=== PATIENT | male | born 1960 | race Caucasian/White ===

== ENCOUNTER 2019-05-18 06:53 | Day surgery (SDC) | payer OTHER ==
[~2019-05-18] VITALS: Ht 182.9 cm; Wt 111.1 kg
[~2019-05-18 06:53] MED LIST: CALC600T60 PO; FLOM0.4C39 PO; GNP1000T11 PO; HYDR-3716 PO; LISI40TA PO; MAGN400T3 PO; METF500T13 PO; MULTCAP PO; NS 1,000 ML IV ONE; OMEP20CA4 PO; PROP60TA18 PO; QC F0.52 PO; REFR0.5D8 OU; SILD100T PO; SIMV40TA2 PO
[2019-05-18] MEDS ORDERED: LIDOCAINE 2% INJ 100 MG/5 ML SDV (FOR ANES.) As Ordered ONE (07:14)
[2019-05-18] MEDS ORDERED: PROPOFOL 200 MG/20 ML VIAL As Ordered ONE ×2 (07:14→08:35)
[2019-05-18] MEDS ORDERED: fentaNYL 100 MCG/2 ML INJECTION (J3010) As Ordered ONE (08:05)
--- NOTE | 2019-05-18 08:22 | ROOR ---
Patient Name: James Tran Procedure Date: 05/18/2019 8:02 AM Date of : 1960 Age: 58 Room: [facility] Gender: Male Note Status: Finalized Procedure: Upper Endoscopy + Biopsies Indications: Heartburn, Nausea Providers: Sylvester De Diso MD Referring MD: [facility] Kevin TRAVIS [facility] [address], Admin. Requesting Provider: Medicines: Monitored Anesthesia Care Complications: No immediate complications. Procedure: Pre-Anesthesia Assessment: - The heart rate, respiratory rate, oxygen saturations, blood pressure, adequacy of pulmonary ventilation, and response to care were monitored throughout the procedure. The Endoscope was introduced through the mouth, and advanced to the second part of duodenum. The upper GI endoscopy was accomplished without difficulty. The patient tolerated the procedure well. Findings: The Z-line was irregular and was found 40 cm from the incisors. Multiple biopsies were obtained with cold forceps for evaluation to rule out Helms's Esophagus randomly at the gastroesophageal junction. A small hiatal hernia was present. Localized mild inflammation characterized by congestion (edema) and erythema was found in the prepyloric region of the stomach. Biopsies were taken with a cold forceps for Helicobacter pylori testing. The exam of the duodenum was otherwise normal. Impression: - Z-line irregular, 40 cm from the incisors. - Small hiatal hernia. - Mucosal changes suspicious for gastritis. Biopsied. - Multiple biopsies were obtained at the gastroesophageal junction. - The examination was otherwise normal. Recommendation: - Patient has a contact number available for emergencies. The signs and symptoms of potential delayed complications were discussed with the patient. Return to normal activities tomorrow. Written discharge instructions were provided to the patient. - High fiber diet. - Discharge patient to home. - Follow an antireflux regimen. - Continue present medications. - Await pathology results. - Telephone GI clinic for pathology results in 1 week. - Return to referring physician. - The findings and recommendations were discussed with the patient's family. Sylvester De Dios MD Sylvester De Dios MD 05/18/2019 8:22:11 AM Electronically signed by Sylvester De Dios MD Number of Addenda: 0 Note Initiated On: 05/18/2019 8:02 AM Estimated Blood Loss: Estimated blood loss: none.
--- NOTE | 2019-05-18 08:48 | ROOR ---
Patient Name: James Tran Procedure Date: 05/18/2019 8:02 AM Date of : 1960 Age: 58 Room: [facility] Gender: Male Note Status: Finalized Procedure: Total Colonoscopy to Cecum + Cold Snare Polypectomy + Hemoclips Indications: Screening for colorectal malignant neoplasm Providers: Sylvester De Dios MD Referring MD: [facility], Admin. Requesting Provider: Medicines: Monitored Anesthesia Care Complications: No immediate complications. Procedure: Pre-Anesthesia Assessment: - The heart rate, respiratory rate, oxygen saturations, blood pressure, adequacy of pulmonary ventilation, and response to care were monitored throughout the procedure. The Colonoscope was introduced through the anus and advanced to the cecum, identified by appendiceal orifice and ileocecal valve. The colonoscopy was performed without difficulty. The patient tolerated the procedure well. The quality of the bowel preparation was excellent. Findings: The perianal and digital rectal examinations were normal. Non-bleeding internal hemorrhoids were found during retroflexion. The hemorrhoids were small and Grade I (internal hemorrhoids that do not prolapse). Scattered small-mouthed diverticula were found in the recto-sigmoid colon, sigmoid colon and descending colon. A medium polyp was found in the mid ascending colon. The polyp was sessile. The polyp was removed with a cold snare. Resection and retrieval were complete. To prevent bleeding after the polypectomy, three hemostatic clips were successfully placed (MR conditional). There was no bleeding at the end of the procedure. The exam was otherwise without abnormality on direct and retroflexion views. Impression: - Non-bleeding internal hemorrhoids. - Diverticulosis in the recto-sigmoid colon, in the sigmoid colon and in the descending colon. - One medium polyp in the mid ascending colon, removed with a cold snare. Resected and retrieved. Clips (MR conditional) were placed. - The examination was otherwise normal on direct and retroflexion views. - The exam was otherwise normal to the cecum. Recommendation: - Patient has a contact number available for emergencies. The signs and symptoms of potential delayed complications were discussed with the patient. Return to normal activities tomorrow. Written discharge instructions were provided to the patient. - High fiber diet. - Discharge patient to home. - Continue present medications. - Await pathology results. - Telephone GI clinic for pathology results in 1 week. - Repeat colonoscopy for surveillance based on pathology results. - Return to referring physician. - The findings and recommendations were discussed with the patient's family. Sylvester De Dios MD Sylvester De Dios MD 05/18/2019 8:48:27 AM Electronically signed by Sylvester De Dios MD Number of Addenda: 0 Note Initiated On: 05/18/2019 8:02 AM Estimated Blood Loss: Estimated blood loss: none.
[2019-05-18 09:00] VITALS: BP 138/86
== END 2019-05-18 09:21 | disposition home or self-care (01) ==
LOC: M OPP 06:53
PROVIDERS: ATTEND Internal Medicine Gastroenterology
DX: Z12.11 Encounter for screening for malignant neoplasm of colon (principal); K64.0 First degree hemorrhoids; D12.2 Benign neoplasm of ascending colon; K57.30 Diverticulosis of large intestine without perforation or abscess without bleeding; K22.8 Other specified diseases of esophagus; K44.9 Diaphragmatic hernia without obstruction or gangrene; K31.89 Other diseases of stomach and duodenum; R12 Heartburn; R11.0 Nausea; E11.9 Type 2 diabetes mellitus without complications; Z79.899 Other long term (current) drug therapy; Z79.891 Long term (current) use of opiate analgesic; Z87.891 Personal history of nicotine dependence
CPT/HCPCS: 43239; 45385; 88305; J3010

== ENCOUNTER → 2021-11-22 | Outpatient (CLI) | payer OTHER ==
[~2021-11-22] MED LIST changes: -LISI40TA PO; +LISI40TA4 PO; -MAGN400T3 PO; +MAGN400T33 PO; -NS 1,000 ML IV ONE; +OMEP1CAP73 PO; -OMEP20CA4 PO; -SIMV40TA2 PO; +SIMV40TA20 PO
== END ==
LOC: M PLAIMG 14:42
PROVIDERS: ATTEND Family Medicine
DX: M54.59 Other low back pain (principal)

== ENCOUNTER → 2022-08-27 | Outpatient (CLI) | payer OTHER ==
[~2022-08-27] MED LIST changes: +GASTROGRAFIN SOLUTION 30ML As Ordered ONE; +ISOVUE-370 76% 100ML VIAL As Ordered ONE
== END ==
LOC: M RAD 12:43
PROVIDERS: ATTEND Nurse Practitioner Family
DX: K76.0 Fatty (change of) liver, not elsewhere classified (principal); K57.30 Diverticulosis of large intestine without perforation or abscess without bleeding; R10.9 Unspecified abdominal pain
CPT/HCPCS: 74178; Q9963; Q9967

== ENCOUNTER 2022-12-06 13:04 | Emergency (ER) | payer OTHER ==
[~2022-12-06] VITALS: Ht 182.9 cm; Wt 111.1 kg
[~2022-12-06 13:04] MED LIST changes: +ATEN50TA2 PO; +CYMB1CAP5 PO; +FINA5TAB2 PO; -GASTROGRAFIN SOLUTION 30ML As Ordered ONE; -ISOVUE-370 76% 100ML VIAL As Ordered ONE; +METH-1164 PO; +NESI25TA PO; +ROSU40TA4 PO; +SUMA50TA2 PO
[2022-12-06] MEDS ORDERED: KETOROLAC 30 MG/ML 1ML VIAL IV ONE (16:30)
[2022-12-06] MEDS ORDERED: methocarbamoL 500 MG TAB PO ONE (16:30)
[2022-12-06 16:35] LABS: GC DNA AMPLIFICATION NEGATIVE (NEGATIVE)
[2022-12-06 17:14] LABS: BASO # 0.1 10^3/uL (0.0-0.2); BASO % 0.8 % (0.0-1.0); EOS # 0.1 10^3/uL (0.0-0.5); EOS % 1.6 % (0.0-3.0); HEMATOCRIT 44.9 % (42.0-52.0); HEMOGLOBIN 15.4 g/dl (13.5-17.5); LYMPH # 2.3 10^3/uL (1.5-5.0); LYMPH % 28.9 % (24.0-44.0); MEAN CORPUSCULAR HEMOGLOBIN 29.6 pg (27.0-33.0); MEAN CORPUSCULAR HGB CONC 34.3 g/dl (32.0-36.5); MEAN CORPUSCULAR VOLUME 86.3 fl (80.0-96.0); MONO # 0.7 10^3/uL (0.0-0.8); MONO % 8.3 % (2.0-8.0); NEUTROPHILS # 4.8 10^3/uL (1.5-8.5); PLATELET COUNT, AUTOMATED 282 10^3/uL (150-450)
[2022-12-06 17:31] LABS: BLOOD UREA NITROGEN 11 MG/DL (9-23); CALCIUM LEVEL 9.1 MG/DL (8.3-10.6); CARBON DIOXIDE LEVEL 31 MMOL/L (20-31); CHLORIDE LEVEL 103 MMOL/L (98-107); CREATININE FOR GFR 0.78 MG/DL (0.70-1.30); GLOMERULAR FILTRATION RATE > 60.0 (>49); GLUCOSE, FASTING 119 MG/DL (74-106); POTASSIUM SERUM 4.1 MMOL/L (3.5-5.1); SODIUM LEVEL 141 MMOL/L (136-145)
[2022-12-06] MEDS ORDERED: METH-1165 PO (21:10)
[2022-12-06] MEDS ORDERED: PRED20TA PO (21:10)
[2022-12-06 21:17] VITALS: BP 140/77
== END 2022-12-06 21:17 | disposition left against medical advice (07) ==
LOC: M ED 14:40
DX: M51.36 Other intervertebral disc degeneration, lumbar region (principal); I10 Essential (primary) hypertension; G47.30 Sleep apnea, unspecified; R51.9 Headache, unspecified; N40.0 Benign prostatic hyperplasia without lower urinary tract symptoms; Z79.899 Other long term (current) drug therapy
CPT/HCPCS: 72148; 76870; 80048; 81001; 85025; 87086; 87661; 87810; 87850; 93976; 96374; 99284; J1885

== ENCOUNTER 2022-12-19 11:27 | Day surgery (SDC) | payer OTHER ==
[~2022-12-19] VITALS: Ht 182.9 cm; Wt 108.5 kg
[~2022-12-19 11:27] MED LIST changes: +METH-1165 PO; +NS 1,000 ML IV ONE; +PRED20TA PO
[2022-12-19] MEDS ORDERED: ETOMIDATE INJ 20MG/10ML VIAL As Ordered ONE (12:14)
[2022-12-19] MEDS ORDERED: fentaNYL 100 MCG/2 ML INJECTION As Ordered ONE (13:05)
[2022-12-19 14:14] VITALS: BP 169/96
== END 2022-12-19 14:17 | disposition home or self-care (01) ==
LOC: M OPP 11:27
PROVIDERS: ATTEND Surgery
DX: K63.5 Polyp of colon (principal); K64.9 Unspecified hemorrhoids; K57.30 Diverticulosis of large intestine without perforation or abscess without bleeding; K31.7 Polyp of stomach and duodenum; Z87.891 Personal history of nicotine dependence; Z79.891 Long term (current) use of opiate analgesic; Z79.899 Other long term (current) drug therapy
CPT/HCPCS: 43251; 45380; 45385; 88305; J3010

== ENCOUNTER → 2023-05-13 | Outpatient (CLI) | payer OTHER ==
[~2023-05-13] MED LIST changes: -NS 1,000 ML IV ONE
== END ==
LOC: M RAD 15:52
PROVIDERS: ATTEND Nurse Practitioner Family
DX: R11.0 Nausea (principal)

== ENCOUNTER 2023-06-24 10:07 | Emergency (ER) | payer OTHER ==
[~2023-06-24] VITALS: Ht 182.9 cm; Wt 155.0 kg
[2023-06-24] MEDS ORDERED: LIDOCAINE 4% CREAM 5GM (LMX4) TOP ONE (12:05)
[2023-06-24] MEDS ORDERED: KETOROLAC 60MG 2ML VIAL IM ONE (12:05)
[2023-06-24] MEDS ORDERED: ANEC4CRE3 TOP (14:12)
[2023-06-24 14:21] VITALS: BP 133/74; TEMP 97; O2SAT 95
== END 2023-06-24 14:23 | disposition home or self-care (01) ==
LOC: M ED 10:07
DX: S89.92XA Unspecified injury of left lower leg, initial encounter (principal); Y92.009 Unspecified place in unspecified non-institutional (private) residence as the place of occurrence of the external cause; E11.9 Type 2 diabetes mellitus without complications; I10 Essential (primary) hypertension; Z79.899 Other long term (current) drug therapy
CPT/HCPCS: 73564; 73700; 93971; 96372; 99283; J1885

== ENCOUNTER 2023-07-23 13:15 | Emergency (ER) | payer OTHER ==
[~2023-07-23] VITALS: Ht 182.9 cm; Wt 118.0 kg
[~2023-07-23 13:15] MED LIST changes: +ANEC4CRE3 TOP
[2023-07-23 14:47] LABS: BASO # 0.1 10^3/uL (0.0-0.2); BASO % 0.8 % (0.0-1.0); EOS # 0.3 10^3/uL (0.0-0.5); EOS % 3.2 % (0.0-3.0); HEMATOCRIT 41.4 % (42.0-52.0); HEMOGLOBIN 14.7 g/dl (13.5-17.5); LYMPH # 1.7 10^3/uL (1.5-5.0); LYMPH % 21.9 % (24.0-44.0); MEAN CORPUSCULAR HEMOGLOBIN 29.7 pg (27.0-33.0); MEAN CORPUSCULAR HGB CONC 35.5 g/dl (32.0-36.5); MEAN CORPUSCULAR VOLUME 83.6 fl (80.0-96.0); MONO # 0.8 10^3/uL (0.0-0.8); MONO % 10.1 % (2.0-8.0); NEUTROPHILS # 4.9 10^3/uL (1.5-8.5); NEUTROPHILS % 63.6 % (36.0-66.0); PLATELET COUNT, AUTOMATED 227 10^3/uL (150-450); RED BLOOD COUNT 4.95 10^6/uL (4.30-6.10); WHITE BLOOD COUNT 7.7 10^3/uL (4.0-10.0)
[2023-07-23 15:17] LABS: BLOOD UREA NITROGEN 14 MG/DL (9-23); CALCIUM LEVEL 9.4 MG/DL (8.3-10.6); CARBON DIOXIDE LEVEL 30 MMOL/L (20-31); CHLORIDE LEVEL 97 MMOL/L (98-107); CK-MB VALUE MASS < 1.0 NG/ML (<3.6); CPK CREATINE PHOSPHOKINASE 285 U/L (46-171); CREATININE FOR GFR 0.71 MG/DL (0.70-1.30); GLOMERULAR FILTRATION RATE > 60.0 (>49); GLUCOSE, FASTING 162 MG/DL (74-106); MAGNESIUM LEVEL 2.1 MG/DL (1.8-2.4); MB/CK RELATIVE INDEX 0.35 (< OR =4); POTASSIUM SERUM 4.2 MMOL/L (3.5-5.1); SODIUM LEVEL 132 MMOL/L (136-145)
[2023-07-23 15:19] LABS: FREE T4 0.92 NG/DL (0.89-1.76); THYROID STIMULATING HORMONE 0.867 uIU/ML (0.55-4.78)
[2023-07-23 15:21] LABS: RSV AMPLIFICATION NEGATIVE (NEGATIVE)
[2023-07-23 17:15] VITALS: BP 129/74
[2023-07-23 17:18] VITALS: TEMP 98.4; O2SAT 95
== END 2023-07-23 17:44 | disposition home or self-care (01) ==
LOC: M ED 13:15
DX: R55 Syncope and collapse (principal); R05.9 Cough, unspecified; E11.9 Type 2 diabetes mellitus without complications; I10 Essential (primary) hypertension; Z79.899 Other long term (current) drug therapy; Z11.52 Encounter for screening for COVID-19

== ENCOUNTER 2023-09-09 13:21 | Emergency (ER) | payer OTHER ==
[~2023-09-09] VITALS: Ht 182.9 cm; Wt 116.2 kg
[2023-09-09 14:35] LABS: BASO % 0.5 % (0.0-1.0); EOS # 0.1 10^3/uL (0.0-0.5); EOS % 1.7 % (0.0-3.0); HEMATOCRIT 43.6 % (42.0-52.0); HEMOGLOBIN 15.8 g/dl (13.5-17.5); LYMPH # 1.6 10^3/uL (1.5-5.0); MEAN CORPUSCULAR HEMOGLOBIN 30.4 pg (27.0-33.0); MEAN CORPUSCULAR HGB CONC 36.2 g/dl (32.0-36.5); MEAN CORPUSCULAR VOLUME 83.8 fl (80.0-96.0); MONO # 0.8 10^3/uL (0.0-0.8); MONO % 9.2 % (2.0-8.0); NEUTROPHILS # 5.7 10^3/uL (1.5-8.5); NEUTROPHILS % 69.2 % (36.0-66.0); PLATELET COUNT, AUTOMATED 198 10^3/uL (150-450); WHITE BLOOD COUNT 8.2 10^3/uL (4.0-10.0)
[2023-09-09 14:56] LABS: BLOOD UREA NITROGEN 14 MG/DL (9-23); CALCIUM LEVEL 9.6 MG/DL (8.3-10.6); CARBON DIOXIDE LEVEL 27 MMOL/L (20-31); CHLORIDE LEVEL 95 MMOL/L (98-107); CREATININE FOR GFR 0.74 MG/DL (0.70-1.30); GLOMERULAR FILTRATION RATE > 60.0 (>49); GLUCOSE, FASTING 294 MG/DL (74-106); POTASSIUM SERUM 4.1 MMOL/L (3.5-5.1); SODIUM LEVEL 130 MMOL/L (136-145)
[2023-09-09] MEDS: FLUORESCEIN OPHTH 1MG STRIP OU ONE (17:05)
[2023-09-09] MEDS: PROPARACAINE 0.5% OPHTH SOL 15ML OU ONE (17:05)
[2023-09-09 17:51] LABS: CK-MB VALUE MASS < 1.0 NG/ML (<3.6)
[2023-09-09 17:53] LABS: CPK CREATINE PHOSPHOKINASE 104 U/L (46-171); MB/CK RELATIVE INDEX 0.96 (< OR =4)
[2023-09-09] MEDS ORDERED: OFLO5DRO OU (18:42)
[2023-09-09 18:48] LABS: MB/CK RELATIVE INDEX 0.89 (< OR =4)
[2023-09-09 18:52] VITALS: BP 130/60; TEMP 98.1; O2SAT 97
[2023-09-09] MEDS: OFLOXACIN 0.3 % (OCUFLOX) OPTH SOL 5ML OU ONE (19:48)
== END 2023-09-09 19:42 | disposition home or self-care (01) ==
LOC: M ED 13:21
DX: H10.023 Other mucopurulent conjunctivitis, bilateral (principal); Z79.899 Other long term (current) drug therapy

== ENCOUNTER → 2024-08-06 | Outpatient (CLI) | payer OTHER ==
[~2024-08-06] MED LIST changes: +OFLO5DRO OU; -ROSU40TA4 PO; +ROSU40TA81 PO
== END ==
LOC: M RAD 11:42
PROVIDERS: ATTEND Nurse Practitioner
DX: R25.2 Cramp and spasm (principal); R20.0 Anesthesia of skin

== ENCOUNTER 2024-08-28 13:38 | Emergency (ER) | payer OTHER ==
[~2024-08-28] VITALS: Ht 182.9 cm; Wt 109.2 kg
[2024-08-28] MEDS ORDERED: LOSA50TA28 PO (14:11)
[2024-08-28] MEDS ORDERED: FAMO40TA3 PO (14:11)
[2024-08-28] MEDS ORDERED: VENL75CA2 PO (14:11)
[2024-08-28 18:20] VITALS: BP 137/70; TEMP 98.5; O2SAT 98
[2024-08-28] MEDS ORDERED: NAPR-837 PO (19:05)
[2024-08-28] MEDS: NAPROXEN 250 MG TAB PO ONE (19:06)
== END 2024-08-28 19:10 | disposition home or self-care (01) ==
LOC: M ED 13:38
DX: M17.12 Unilateral primary osteoarthritis, left knee (principal); E11.9 Type 2 diabetes mellitus without complications; I10 Essential (primary) hypertension; E78.00 Pure hypercholesterolemia, unspecified; G47.33 Obstructive sleep apnea (adult) (pediatric); K21.9 Gastro-esophageal reflux disease without esophagitis; F32.A Depression, unspecified; Z88.8 Allergy status to other drugs, medicaments and biological substances; Z79.899 Other long term (current) drug therapy

== ENCOUNTER 2024-09-14 13:04 | Emergency (ER) | payer OTHER ==
[~2024-09-14] VITALS: Ht 182.9 cm; Wt 107.2 kg
[~2024-09-14 13:04] MED LIST changes: +FAMO40TA3 PO; +LOSA50TA28 PO; +NAPR-837 PO; +VENL75CA2 PO
[2024-09-15 01:08] VITALS: TEMP 97.7
[2024-09-15 01:39] VITALS: BP 175/81; O2SAT 98
[2024-09-15] MEDS ORDERED: CELE1CAP4 PO (01:48)
[2024-09-15] MEDS: CelecoXIB 400 MG CAP PO STA (02:08)
== END 2024-09-15 02:16 | disposition home or self-care (01) ==
LOC: M ED 13:04
DX: M10.071 Idiopathic gout, right ankle and foot (principal); E11.9 Type 2 diabetes mellitus without complications; I10 Essential (primary) hypertension; K58.9 Irritable bowel syndrome, unspecified; G47.33 Obstructive sleep apnea (adult) (pediatric); F32.A Depression, unspecified; Z88.8 Allergy status to other drugs, medicaments and biological substances; Z79.899 Other long term (current) drug therapy